=== PATIENT | female | born 1950 | race Caucasian/White ===

== ENCOUNTER 2018-04-15 06:50 | Day surgery (SDC) | payer MEDICARE, BC ==
[2018-04-15] MEDS ORDERED: Dextrose 5%-Lactated Ringers 1,000 ML IV SCH (07:45)
[2018-04-15] MEDS ORDERED: fentaNYL 100 MCG/2 ML SDV ONE (08:33)
[2018-04-15] MEDS ORDERED: Propofol 200 MG/20 ML SDV ONE (08:33)
[2018-04-15] MEDS ORDERED: Midazolam 1 MG/ML 2 ML SDV ONE (08:33)
[2018-04-15] MEDS ORDERED: Atropine 0.4 MG/ML SDV ONE (09:20)
[2018-04-15 11:20] VITALS: BP 99/61
--- NOTE | 2018-04-16 20:40 | OR ---
DATE OF PROCEDURE: 04/15/2018 PREOPERATIVE DIAGNOSIS: Family history of colon carcinoma. POSTOPERATIVE DIAGNOSES: 1. Castillo-diverticulosis. 2. Family history of colon carcinoma with no evident neoplasia on current exam. OPERATIVE PROCEDURE: Flexible colonoscopy. ANESTHESIA: IV sedation. INDICATION FOR PROCEDURE: This is a 67-year-old presenting for a screening colonoscopy. She has a family history with 2 uncles having colon carcinoma and the plan is to proceed with a flexible colonoscopy with biopsies and/or polypectomy as indicated. Potential risks including bleeding and perforation were discussed and the patient wishes to proceed. DETAILS OF PROCEDURE: The patient was taken to the operating room and placed in a left lateral decubitus position. IV sedation was administered, after which the initial digital rectal exam was performed and was unremarkable. The scope was then passed into the rectum with retroflexion revealing uncomplicated hemorrhoidal columns. The scope was eventually passed to the level of the cecum. The prep was quite good with only a small amount of liquid stool present. The patient had uncomplicated castillo-diverticulosis. Otherwise, there were no areas of colitis and no polyps or other signs of neoplasia. The above findings were reconfirmed and the scope was withdrawn and the procedure concluded. Given the family history, recommendation would be to repeat the colonoscopy in 5 years. Delvin Esparza MD /[id number]
== END 2018-04-15 11:35 | disposition home or self-care (01) ==
LOC: JP.SDS 06:50
PROVIDERS: ATTEND Surgery
DX: Z12.11 Encounter for screening for malignant neoplasm of colon (principal); Z80.0 Family history of malignant neoplasm of digestive organs; K64.9 Unspecified hemorrhoids; K57.30 Diverticulosis of large intestine without perforation or abscess without bleeding; K29.70 Gastritis, unspecified, without bleeding; E11.9 Type 2 diabetes mellitus without complications
CPT/HCPCS: G0121; J0461; J2250; J2704; J3010; J7042

== ENCOUNTER 2022-02-09 06:14 | Day surgery (SDC) | payer MEDICARE, BC ==
[2022-02-09] MEDS ORDERED: Lactated Ringers 1,000 ML IV SCH (07:00)
[2022-02-09] MEDS ORDERED: Propofol 200 MG/20 ML SDV ONE (07:16)
[2022-02-09 08:40] VITALS: BP 126/65; PULSE 50
== END 2022-02-09 08:45 | disposition home or self-care (01) ==
LOC: JP.SDS 06:14
PROVIDERS: ATTEND Student in an Organized Health Care Education/Training Program
DX: K21.00 Gastro-esophageal reflux disease with esophagitis, without bleeding (principal); K44.9 Diaphragmatic hernia without obstruction or gangrene; K29.50 Unspecified chronic gastritis without bleeding; Z88.8 Allergy status to other drugs, medicaments and biological substances; Z79.899 Other long term (current) drug therapy
CPT/HCPCS: 43239; 87081; J2704; J7120

== ENCOUNTER 2022-04-09 08:08 | Day surgery (SDC) | payer MEDICARE, BC ==
[2022-04-09] MEDS ORDERED: Acetaminophen 500 MG Tab PO ONE (08:15)
[2022-04-09] MEDS ORDERED: fentaNYL 250 MCG/5 ML SDV ONE ×2 (08:29→11:56)
[2022-04-09] MEDS ORDERED: Rocuronium 50 MG/5 ML Vial ONE ×2 (08:30→11:56)
[2022-04-09] MEDS ORDERED: Glycopyrrolate 0.2 MG/ML 5 ML MDV ONE (08:30)
[2022-04-09] MEDS ORDERED: Neostigmine Methylsulfate 1 MG/ML 5 ML Syringe ONE (08:30)
[2022-04-09] MEDS ORDERED: Dexamethasone 4 MG/ML SDV ONE (08:30)
[2022-04-09] MEDS ORDERED: Propofol 200 MG/20 ML SDV ONE (08:30)
[2022-04-09] MEDS ORDERED: Succinylcholine 200 MG/10 ML MDV ONE (08:30)
[2022-04-09] MEDS ORDERED: Ondansetron 4 MG/2 ML SDV ONE (08:30)
[2022-04-09] MEDS ORDERED: ceFAZolin 2 GM in Sodium Chloride 0.9% 50 ML IV ONE (09:15)
[2022-04-09] MEDS: Lactated Ringers 1,000 ML IV SCH ×2 (09:37→20:10)
[2022-04-09] MEDS ORDERED: ePHEDrine 50 MG/ML SDV ONE (11:36)
[2022-04-09] MEDS ORDERED: Lactated Ringers 1,000 ML ONE ×2 (11:45→14:22)
[2022-04-09] MEDS: Bupivacaine 0.5%/EPINEPHrine 1:200,000 50 ML MDV ONE ×2 (12:36→14:50)
[2022-04-09] MEDS ORDERED: Ondansetron 4 MG/2 ML SDV IVPUSH PRN (15:05)
[2022-04-09] MEDS ORDERED: Acetaminophen/HYDROcodone 325-5 MG Tab PO PRN (15:05)
[2022-04-09] MEDS ORDERED: Glucagon,Human Recombinant 1 MG Vial IM PRN (15:09)
[2022-04-09] MEDS ORDERED: 50% Dextrose in Water 50 ML Syringe IVPUSH PRN (15:09)
[2022-04-09] MEDS ORDERED: oxyCODONE 5 MG Tab PO PRN (18:05)
[2022-04-09] MEDS: Insulin Lispro 100 Unit/ML 3 ML KwikPen SUBCUT SCH ×2 (18:16→20:55)
[2022-04-09] MEDS: Acetaminophen 500 MG Tab PO SCH (18:21)
[2022-04-09] MEDS ORDERED: Latanoprost 0.005% Ophth Soln 2.5 ML Bottle EYEBOTH SCH (21:00)
[2022-04-10] MEDS: Acetaminophen 500 MG Tab PO SCH ×2 (02:42→09:04)
[2022-04-10] MEDS: Lactated Ringers 1,000 ML IV SCH (04:46)
[2022-04-10 05:16] LABS: ESTIMATED GFR 68 mL/min (>60)
[2022-04-10] MEDS: Insulin Lispro 100 Unit/ML 3 ML KwikPen SUBCUT SCH ×2 (07:47→11:44)
[2022-04-10] MEDS ORDERED: Brimonidine 0.2% Ophth Soln 5 ML Bottle EYEBOTH SCH (09:00)
[2022-04-10] MEDS ORDERED: Timolol Maleate 0.5% Ophth Soln 5 ML Bottle EYEBOTH SCH (09:00)
[2022-04-10 10:38] VITALS: BP 96/50; PULSE 58
== END 2022-04-10 14:10 | disposition home or self-care (01) ==
LOC: JP.SDS 08:08 → JP.MS 15:05 → UNDOADMIN 15:05 → UNDODISIN 04-10 14:10 → JP.SDS 04-10 14:10
PROVIDERS: ATTEND Student in an Organized Health Care Education/Training Program
DX: K44.9 Diaphragmatic hernia without obstruction or gangrene (principal); K29.70 Gastritis, unspecified, without bleeding; K21.9 Gastro-esophageal reflux disease without esophagitis; E11.69 Type 2 diabetes mellitus with other specified complication; M79.7 Fibromyalgia; Z79.899 Other long term (current) drug therapy; Z79.84 Long term (current) use of oral hypoglycemic drugs; Z79.82 Long term (current) use of aspirin; Z91.048 Other nonmedicinal substance allergy status
CPT/HCPCS: 36415; 43281; 80053; 82947; 83735; 84100; 85027; 86850; 86900; 86901; A9270; J0690; J1100; J2405; J2704; J2710; J3010; J3490; J7120; J0330

== ENCOUNTER 2023-08-28 08:41 | Day surgery (SDC) | payer MEDICARE, BC ==
[2023-08-28] MEDS: Sodium Chloride 0.9% 1,000 ML IV SCH (09:31)
[2023-08-28] MEDS ORDERED: fentaNYL 50 MCG/ML SDV ONE (09:56)
[2023-08-28] MEDS ORDERED: Propofol 200 MG/20 ML SDV ONE (09:56)
[2023-08-28] MEDS ORDERED: Atropine 0.4 MG/ML SDV ONE (10:22)
[2023-08-28 11:30] VITALS: BP 111/55; PULSE 44
== END 2023-08-28 11:31 | disposition home or self-care (01) ==
LOC: JP.SDS 08:41
PROVIDERS: ATTEND Surgery
DX: Z12.11 Encounter for screening for malignant neoplasm of colon (principal); Q43.8 Other specified congenital malformations of intestine
CPT/HCPCS: 00812-QZ; J0461; J2704; J3010; J7030